=== PATIENT | female | born 1955 | race Caucasian/White ===

== ENCOUNTER 2017-06-30 09:36 | Inpatient (IN) | payer OTHER ==
[2017-06-30] MEDS ORDERED: diphenhydrAMINE 50 MG/ML VIAL ONE (09:45)
[2017-06-30] MEDS ORDERED: Albuterol Sulfate 2.5 mg/3 ml Neb ONE (10:09)
[2017-06-30] MEDS ORDERED: Rocuronium Bromide 50 MG/5 ML VIAL ONE (10:14)
[2017-06-30] MEDS ORDERED: EPINEPHrine 1 MG/ML AMP ONE (10:30)
--- NOTE | 2017-06-30 10:33 | RAD ---
SINGLE VIEW OF THE CHEST: COMPARISON: None. HISTORY: Difficulty breathing. FINDINGS: A single view of the chest shows a normal-size cardiomediastinal silhouette. There are multifocal in filtrates scattered throughout the lungs. No obvious pleural effusion is seen. IMPRESSION: Multifocal pneumonia. POS: [facility]
[2017-06-30 10:38] LABS: Troponin I 0.035 ng/mL (< 0.028)
[2017-06-30 10:41] LABS: CKMB 11.5 ng/mL (0-6.6)
[2017-06-30] MEDS ORDERED: Potassium Chloride 20 MEQ/100 ML PREMIX BAG ONE (10:44)
[2017-06-30 10:47] LABS: Actual Bicarbonate (HCO3a) 17.7 mEq/L (22-26); Base Excess (BEa) -9.2 mEq/L (0 (+/-) 2.5); CO2 Tension 42.3 mmHg (35.0-45.0); Hematocrit-ABG 37.4 % (36.0-47.0); Hemoglobin (Hb) 11.2 g/dL (12.0-16.0); O2 Tension (PaO2) 74.3 mmHg (80.0-100.0); pH, Arterial 7.24 (7.35-7.45)
[2017-06-30 10:48] LABS: Analyzer IN Cardio ER; Puncture Site LRA
[2017-06-30] MEDS ORDERED: Norepinephrine 8 MG/0.9% NS 250 ML ONE (10:53)
[2017-06-30 11:19] LABS: INR-International Normal Ratio 1.5; PTT 29.7 SEC (22.9-36.1); Prothrombin Time 18.8 SEC (12.0-14.7)
[2017-06-30] MEDS ORDERED: fentaNYL Citrate/PF 2,000 MCG in Sodium Chloride 0.9% 60 ML IV SCH (11:30)
[2017-06-30 11:37] LABS: ALT (SGPT) 21 U/L (8-55); AST (SGOT) 47 U/L (5-34); Albumin 2.7 g/dL (3.4-4.8); Alkaline Phosphatase 32 U/L (40-150); Anion Gap 25 mmol/L (10-20); BUN (Urea Nitrogen) 48 mg/dL (9.8-20.1); Bilirubin, Total 1.1 mg/dL (0.2-1.2); CK (CPK) 417 U/L (29-168); Calc. Creatinine Clearance 0 mL/min (70-130); Calcium 7.4 mg/dL (7.8-10.44); Carbon Dioxide 16 mmol/L (23-31); Chloride 92 mmol/L (98-107); Estimated GFR-MDRD 16; Glucose 205 mg/dL (80-115); Lipase 6 U/L (8-78); Protein, Total 5.7 g/dL (6.0-8.3); Sodium 131 mmol/L (136-145)
[2017-06-30 11:41] LABS: Potassium 2.2 mmol/L (3.5-5.1)
[2017-06-30 11:41] LABS: Bilirubin Small (Negative); Blood, Urine Negative (Negative); Clarity CLOUDY (Clear); Glucose, Urine (Dipstick) Negative (Negative); Leukocyte Trace (Negative); Nitrite Negative (Negative); Protein, Urine (Dipstick) 30 mg/dL (Neg-Trace); Specific Gravity, Urine 1.022 (1.002-1.036)
[2017-06-30 11:44] LABS: RBC/HPF 0-3 HPF (0-3); Squamous Epithelial 0-3 HPF (0-3); WBC/HPF 0-3 HPF (0-3)
[2017-06-30 11:45] LABS: Yeast-AUWi Flag 62.8 (0-25.0)
[2017-06-30 11:45] LABS: Band 20 % (5-11); Hemoglobin 10.9 g/dL (12.0-16.0); Large Platelets SLIGHT; Lymphocytes 39 % (21-51); MDiff Complete? YES; Mean Corpuscular HGB CONC 32.5 g/dL (32.0-36.0); Mean Corpuscular Hemoglobin 28.5 pg (27.0-31.0); Mean Corpuscular Volume 87.7 fl (81.0-99.0); Mean Platelet Volume 8.3 fL (7.4-10.4); Metamyelocyte 34 % (0-0); Myelocyte 2 % (0-0); Neutrophil 4 % (42-75); Platelet Count 151 thou/uL (130-400); RBC Distribution Width 12.5 % (11.5-14.5); Reactive Lymphocytes 1 % (0-10); Red Blood Cell (RBC) Count 3.81 mill/uL (4.20-5.40); Reflex for Review?? YES; Toxic Granulation SLIGHT; Vacuoles MODERATE; White Blood Cell (WBC) Count 3.2 thou/uL (4.8-10.8)
[2017-06-30 11:46] LABS: Pathc Cast-AUWi Flag 5.01 (0-2.49)
--- NOTE | 2017-06-30 11:50 | RAD ---
SINGLE VIEW OF THE CHEST: COMPARISON: 06/30/17 at 9:37 a.m. HISTORY: Respiratory distress with multifocal pneumonia. Rash on left arm. FINDINGS: A single view of the chest shows a normal-sized cardiomediastinal silhouette. There are stable multi focal infiltrates in the lungs. There has been interval placement of an NG tube with its tip at the upper border of the clavicles. An NG tube courses off the inferior aspect of the film, likely in the stomach. IMPRESSION: 1. Stable multifocal pneumonia. 2. Appropriate position of endotracheal tube and nasogastric tube. POS: [facility]
[2017-06-30 11:56] LABS: Bacteria/HPF 3+ HPF (None Seen); Hyaline Casts/LPF 0-3 HYALINE CAST LPF (0-3 Hyaline); Manual Microscopic Reviewed? No Path Casts Seen; Renal Epithelial None Seen HPF (0-3); Transitional Epithelial 0-3 HPF (0-3); Yeast-All Forms None Seen HPF (None Seen)
[2017-06-30 13:37] LABS: Anion Gap 24 mmol/L (10-20); BUN (Urea Nitrogen) 47 mg/dL (9.8-20.1); Calc. Creatinine Clearance 0 mL/min (70-130); Calcium 7.1 mg/dL (7.8-10.44); Carbon Dioxide 15 mmol/L (23-31); Chloride 95 mmol/L (98-107); Estimated GFR-MDRD 18; Glucose 244 mg/dL (80-115); Magnesium 1.8 mg/dL (1.6-2.6); Sodium 131 mmol/L (136-145)
[2017-06-30 13:39] LABS: Potassium 2.5 mmol/L (3.5-5.1)
[2017-06-30 13:42] LABS: Troponin I 0.039 ng/mL (< 0.028)
[2017-06-30] MEDS: Sodium Chloride 0.9% 1,000 ML IV SCH ×3 (14:35→19:54)
[2017-06-30] MEDS ORDERED: Propofol 1,000 MG/100 ML VIAL IV PRN (14:39)
[2017-06-30] MEDS ORDERED: Morphine 2 MG/ML SYRINGE SLOW IVP PRN (14:39)
[2017-06-30] MEDS ORDERED: Lorazepam 2 MG/ML VIAL SLOW IVP PRN (14:39)
[2017-06-30] MEDS ORDERED: DISCONTINUE PREVIOUS NARCOTIC PAIN MEDICATIONS AND BENZODIAZEPINES FS SCH (14:39)
[2017-06-30] MEDS ORDERED: Sodium Chloride 0.9% 1,000 ML IV SCH ×2 (15:00→23:15)
[2017-06-30] MEDS ORDERED: cefTRIAXone\\ROCEPHIN 1 GM in Sodium Chloride 0.9% 100 ML IVPB SCH (15:00)
[2017-06-30] MEDS ORDERED: Vancomycin HCl 1 GM in Premix Bag 1 BAG IVPB SCH (16:00)
[2017-06-30] MEDS ORDERED: Azithromycin 500 MG in Sodium Chloride 0.9% 250 ML 250 ML IVPB SCH (16:00)
[2017-06-30] MEDS ORDERED: Potassium Chloride 40 MEQ in Sodium Chloride 0.9% 250 ML 250 ML IVPB SCH (16:00)
[2017-06-30 16:17] LABS: Lactic Acid 8.3 mmol/L (0.5-2.2)
[2017-06-30 16:19] LABS: Troponin I 0.041 ng/mL (< 0.028)
--- NOTE | 2017-06-30 16:20 | ER ---
DATE OF SERVICE: 06/30/2017 Please refer the patient's electronic medical record for further details of her visit. In summary, the patient presents with shortness of breath, which began last night. She also reports chest pain and back pain, which began the night before. She states that she is a smoker, but does not carry a diagnosis of chronic lung disease such as COPD or emphysema. She states that she has not had had similar difficulty breathing in the past. On arrival, the patient was in moderately severe respiratory distress and was placed on BiPAP immediately upon arrival. She did not tolerate this and her respiratory status worsened. On recheck, with failure of BiPAP intervention, it was decided to intubate the patient. She was in agreement with this plan of action. Of note, she was hypotensive on arrival and we had some difficulty maintaining her blood pressure during her stay in the ER. She was given epinephrine intramuscularly as she had an apparent allergic reaction to medication that was given by EMS. This was done for concern for possible anaphylaxis exacerbating her condition. The patient was given IV fluids and pressure support with Levophed. This improved her blood pressure, but did require frequent titration. Evaluation reveals multilobar pneumonia, concerning for ARDS. She was covered with antibiotics and cultures are pending at the time of dictation. With these findings, I have much lower suspicion for the possibility of PE, which I initially suspected. Because of this, I will refrain from CT imaging given her poor renal function at this time. Note is made as well as bacteriuria. With a bandemia, leukopenia, hypotension, tachycardia, and multiorgan failure, this is consistent with severe sepsis. She is in critical condition at the time of admission, with a very guarded prognosis given the extent of her disease. There is no family at the bedside. HALIMA
[2017-06-30] MEDS: Heparin 5,000 UNITS/ML VIAL SC SCH ×2 (17:27→21:56)
[2017-06-30] MEDS: Albumin 25% 25 GM/100 ML BOT IVPB SCH ×2 (17:28→21:29)
[2017-06-30 18:16] VITALS: BMI 30.1
[2017-06-30] MEDS ORDERED: Furosemide 20 MG/2 ML VIAL SLOW IVP SCH ×2 (18:30→18:45)
[2017-06-30 18:59] LABS: Creatinine, Urine 93.35 mg/dL (47-110)
[2017-06-30 19:18] LABS: Anion Gap 19 mmol/L (10-20); BUN (Urea Nitrogen) 45 mg/dL (9.8-20.1); Calc. Creatinine Clearance 28 mL/min (70-130); Calcium 6.5 mg/dL (7.8-10.44); Carbon Dioxide 16 mmol/L (23-31); Chloride 100 mmol/L (98-107); Estimated GFR-MDRD 21; Glucose 222 mg/dL (80-115); Sodium 132 mmol/L (136-145)
[2017-06-30] MEDS ORDERED: Acetaminophen 325 MG TAB PO PRN (19:19)
[2017-06-30] MEDS: Acetaminophen 325 MG TAB PO PRN (19:48)
[2017-06-30 20:19] LABS: Legionella Urinary Ag Negative (Negative); Strep pneumo Urine Ag NEGATIVE (NEGATIVE)
[2017-06-30] MEDS ORDERED: Famotidine/PF 20 mg/2ml Vial SLOW IVP SCH ×2 (21:00)
[2017-06-30] MEDS: Vasopressin 40 UNIT, Admixture Fee 1 EACH in Sodium Chloride 0.9% 100 ML IV SCH (21:02)
--- NOTE | 2017-06-30 21:10 | ULT ---
RENAL ULTRASOUND: 06/30/17 HISTORY: Acute kidney insufficiency with sepsis. Right kidney measures 9.3 cm in length. Left kidney measures 10.8 cm in length. No evidence of hydron ephrosis. The left kidney does show echogenic foci consistent with calculi. The bladder is contracted with Shaikh catheter in place and not evaluated. IMPRESSION: No hydronephrosis. Tiny echogenic foci in the left kidney may represent small renal calculi. POS: [facility]
[2017-06-30] MEDS ORDERED: Sodium Bicarb 50 MEQ/50 ML Abboject 8.4% SYRINGE ONE ×2 (21:15→21:19)
[2017-06-30 21:20] LABS: Actual Bicarbonate (HCO3a) 16.4 mEq/L (22-26); Base Excess (BEa) -11.3 mEq/L (0 (+/-) 2.5); CO2 Tension 44.4 mmHg (35.0-45.0); Calcium, Ionized 0.9 mmol/L (1.12-1.30); Hematocrit-ABG 36.9 % (36.0-47.0); Hemoglobin (Hb) 11.4 g/dL (12.0-16.0); Puncture Site RBRACH; pH, Arterial 7.19 (7.35-7.45)
[2017-06-30] MEDS ORDERED: D5 1/4 NS 1,000 ML IV SCH (21:30)
[2017-06-30] MEDS ORDERED: Sodium Bicarb 50 MEQ/50 ML Abboject 8.4% SYRINGE IVP SCH (21:30)
--- NOTE | 2017-06-30 21:35 | CON ---
DATE OF CONSULTATION: 06/30/2017 Ms. Montague is a [employer] inmate here. She works in the kitchen. She became acutely ill today r eportedly. [facility] and had been given steroids. She developed a "rash" supposedly and was sent here. She was short of breath on presentation and sub sequently has been intubated. She was admitted with a diagnosis of drug reaction. History was obtained from the nursing staff since she is intubated and sedated. PAST MEDICAL HISTORY: Limited amount. She reportedly has hepatitis C, diabetes and hypertension. It is unknown whether she currently smokes or drinks. It is unlikely that she is drinking in the meenakshi son. She is on hydrochlorothiazide, lisinopril, metformin prior to admission. OBJECTIVE: VITAL SIGNS: Blood pressure in the ER initially was 85/51 with a heart rate of 112, blood pressure i n the ICU was 119/62. She is on Levophed, heart rate 127, respiratory rate is in the 20s. Oximetry was in the low 90s. She is on 80% oxygen on 5 of PEEP, when she was admitted. Her PEEP has been inc reased to 10. Her FIO2 has been reduced to 50%. She is febrile. HEENT: Her pupils react. Sclerae is anicteric. NECK: Supple. LUNGS: She has coarse equal breath sounds bilaterally with slightly prolonged expiratory phase. HEART: Regular rhythm, no S3. ABDOMEN: Soft and nontender. EXTREMITIES: Without asymmetry. LABORATORY AND X-RAY FINDINGS: Chest radiograph reviewed by me shows bilateral patchy alveolar infil trates. White count 3.2, hemoglobin 10.9. She has 20% bands on a peripheral smear. She was 34% metamyelocyt es. Sodium 131, potassium 2.5, chloride 95, bicarb 15, BUN 47, creatinine 2.7, glucose 244. I do not hav e any old lab on her. IMPRESSION: 1. Pneumonia with respiratory failure and hypoxemia. 2. Obesity. 3. Relative neutropenia with a preponderance of metamyelocytes on her peripheral smear, but I suspec t this is an acute phase reactant associated with her critical illness and her pneumonia. This fails to improve. Oncology will need to be consulted. I suspect we will see a gradual decrease in bands and metamyelocytes and increase in neutrophils over the next few days. 4. Hypoxemia secondary to severe pneumonia. 5. ? underlying obstructive lung disease. 6. Diabetes. 7. Hypertension. 8. Hypokalemia. Electrolytes will be replaced. PLAN: Steroids, broad antimicrobial therapy, nebulizer treatments, mechanical ventilation, sedation. We will probably start nutritional support tomorrow. Critical care time 40 minutes.
--- NOTE | 2017-06-30 21:40 | HP ---
CHIEF COMPLAINT: Respiratory distress. HISTORY OF PRESENT ILLNESS: This is a 62-year-old female who is currently a jailed inmate who was in itially admitted to the emergency room with a chief complaint of respiratory distress. Due to the se verity of her respiratory distress, she was emergently intubated in the Emergency Department. She wa s found to have a multilobar pneumonia and to be in septic shock as well and has been started on empi rodney antibiotics including Levaquin and ceftriaxone, Levophed for pressor support, and is currently st atus post 2 liters IV fluid, normal saline. At the time of my evaluation, the patient is currently status post intubation. She is sedated on pro pofol. She is unable to provide any history. She has a [facility] personnel with her at bedside who is un fortunately unable to provide any of the patient's history as well. From the ER reports, it appears that the patient also had an allergic reaction causing diffuse maculo papular eruption throughout her torso, arms and legs when she was given a combination of 3 DuoNebs, 2 grams of magnesium, and Solu-Medrol by the EMS. PAST MEDICAL HISTORY: Hepatitis C, type 2 diabetes, hypertension, anxiety, depression. PAST SURGICAL HISTORY: No known history of surgeries. No surgical scarring of the skin along the ab domen, shoulders, ankles, knees, hips or elbows noted on physical examination. FAMILY HISTORY: Unable to obtain secondary to above. SOCIAL HISTORY: Unable to obtain secondary to above. REVIEW OF SYSTEMS: Unable to be obtained due to communication issues as above. PHYSICAL EXAMINATION: VITAL SIGNS: At the time of my evaluation, blood pressure 90/57, pulse 109, respirations 16, O2 sat 95% on the ventilator. GENERAL: Patient is intubated, sedated, lying in the hospital stretcher. HEENT: ET tube appears grossly to be in appropriate position. CARDIOVASCULAR: S1, S2. Pulses 2+ bilateral upper extremity, no pitting pedal edema. RESPIRATORY: Limited anterior examination, prominent ventilator sounds throughout, reasonable air mo vement bilaterally. ABDOMEN: Positive bowel sounds, soft. LABORATORY DATA AND IMAGIN. WBC 3.2, hemoglobin 10.9, hematocrit 33.4, platelets 151, neutrophils percentage 4. 2. PT 18.8, INR 1.5. 3. Blood gas ABG 7.24, pCO2 of 42.3, pO2 of 74.3. Sodium 131, potassium 2.2, chloride 32, bicarbona te 16, BUN 48, creatinine 2.92, glucose 205, lactate 11.0, calcium 7.4. AST 47, ALT 21, alkaline nahum sphatase 32, creatine kinase 417. Troponin 0.035. BNP 434.8, lipase 6. 4. UA significant for urine protein of 30, urine ketones trace, urine bilirubin small, trace leukocy te esterase, and 3+ urine bacteria. 5. Chest x-ray; impression, "multifocal pneumonia" per my evaluation and visualization appears to be distributed throughout the left lobes and the right middle and lower lobes. ASSESSMENT AND PLAN: A 62-year-old female presenting with septic shock and respiratory distress. 1. Septic shock. The patient is currently on Levophed. Continue with IV resuscitation. The patien t has received 2 liters worth of IV fluid bolus in the ER. We will continue for another 2 liters for a total of 4 liters positive and reassess the patient's fluid status at that point in time. Empiric antibiotics will include vancomycin, ceftriaxone, azithromycin. Pressor support with Levophed, titr ate as tolerated. Likely etiology of the patient's septic shock is her multifocal pneumonia. Pendin g respiratory culture, urine culture, blood cultures as well. 2. Multifocal pneumonia noted on chest x-ray. We will also evaluate the patient for influenza. Sarah ce the patient empirically on droplet precautions until negative. We will also check urine strep and urine legionella. At this point in time, no steroids, no nebulizers secondary to her allergic react ion, which is currently self-resolving. I appreciate pulmonary consultation. Patient is currently m echanically ventilated. 3. Acute kidney injury without known history of renal disease. I appreciate Nephrology consultation in the setting of septic shock and acidosis. Patient will need close monitoring of her intake outpu t. Hydration as per above. Check urine electrolytes, renal ultrasound. Pending urine culture as ab ove. If the patient has the urinary tract infection, she certainly is well covered by the empiric an tibiotics above as well. 4. Hypokalemia. Cautious repletion in the setting of acute kidney injury. We will also check serum magnesium and co-replete if needed. Maintain the patient on telemetry. 5. Leukopenia, likely related to septic shock. See above along with empiric antibiotics above. Shannan ck CBC in a.m. 6. Anemia, unclear chronicity. Hemoccult check stool and gastric contents, if any. Serial monitori ng. Recheck in a.m. 7. History of hepatitis C, unknown stage, unknown baseline status. The patient does have an elevate d INR of 1.5, closely monitor for any progressive hepatic disease. 8. Elevated troponin of 0.035 without EKG changes consistent with acute coronary syndrome. Suspect that this more likely represents demand ischemia or a type 2 NSTEMI due to septic shock and the other comorbid issues as described above. We will closely monitor. Low threshold for Cardiology consulta tion if needed. 8. The patient is admitted to the CCU. She is presumed to be full code at this point in time as she is not able to have a code conversation and does not have any designated family members currently av ailable. Greater than 45 minutes critical care time spent.
--- NOTE | 2017-06-30 21:43 | CON ---
DATE OF CONSULTATION: 06/30/2017 NEPHROLOGY CONSULTATION REASON FOR CONSULTATION: Metabolic acidosis and acute renal failure. HISTORY OF PRESENT ILLNESS: This is a 62-year-old female who presented to the hospital with shortness of breath. The patient was found to be hypotensive and in respiratory failure. The patient was intubated. The patient can give no further history and no abdominal pain was reported. PAST MEDICAL HISTORY: Significant for hepatitis C, diabetes, hypertension. PAST SURGICAL HISTORY: Unknown. SOCIAL/FAMILY HISTORY: Unknown except the patient is [facility]. ALLERGIES: Reviewed. HOME MEDICATIONS: List reviewed. Metformin noted on ER records. HOSPITAL MEDICATIONS: List reviewed. PHYSICAL EXAMINATION: GENERAL: Patient is resting. VITAL SIGNS: Afebrile, pulse 70, breathing at 16, blood pressure 100/50. GENERAL APPEARANCE AND MENTAL STATUS: Fair. HEAD/NECK: Normocephalic. Atraumatic. EYES: EOMI. No deformity. EARS: Clear. No ulcers. NOSE: Intact. No lesions. MOUTH: Clear. No discharge. THROAT: Clear. No exudate. LUNGS: Clear. No crackles. CARDIAC: S1, S2. No rub. ABDOMEN: Benign. BS+. GENITALIA/RECTUM: Shaikh absent. BACK/EXTREMITIES: Edema 0+ Ulcer-. NEUROLOGICAL: The patient is resting. SKIN: Shows livedo reticularis. LYMPHATICS: Edema- Ulcer-. LABORATORY DATA: Show hemoglobin is 10.9, lactic acid is 8.3, potassium is 2.5 , creatinine is 2.7. ASSESSMENT AND RECOMMENDATIONS: 1. Acute kidney injury with chronic kidney disease, most likely multifactorial as well as lactic acidosis due to septic shock and or metformin induced lactic acidosis. Risks versus benefits of renal replacement therapy will be discussed and dialysis will be initiated if patient is deemed stable.. 2. Anemia, stable. 3. Medications based on GFR are appropriate. 4. Hypokalemia. Recommend high dose potassium replacement. Overall, prognosis is extremely poor. MTDD
[2017-06-30] MEDS ORDERED: EPINEPHrine 4 MG in Dextrose 5% in Water 250 ML IVPB SCH ×2 (21:45)
[2017-06-30] MEDS: cefTRIAXone\\ROCEPHIN 1 GM, Syringe 0.4 ML in Sterile Water 9.6 ML SLOW IVP SCH (21:54)
[2017-06-30] MEDS: Sodium Bicarbonate 150 MEQ in D5 1/4 NS 1,000 ML IV SCH (22:21)
--- NOTE | 2017-06-30 22:53 | PRG ---
DATE OF SERVICE: 06/30/2017 SUBJECTIVE: Ms. Day Montague has continued to spiral downhill. Her hemodynamics has become more and more unstable. She is on extremely high dose Levophed, vasopres sin and epinephrine is being started. There has been no change in her exam overall, although her lung compliance has fallen some. We have increased her respiratory rate and placed on bilevel ventilation. Her last blood gas showed a pH of 7.19, CO2 of 44 and pO2 of 72. Consideration was being given towards dialysis in the event that some of this acidemia was secondary to metformin. I feel dialysis would end her life. I informed the officers sitting with her [place] that it is very likely that she will not survive the night. We have no other therapeuti c options other than the antimicrobial therapy, steroids, 3 pressors and hyperventilation. If there were family here, I would be having a discussion about do not resuscitate status, but there is no fam nicci here. They also will notify the warden of her possible impending demise. CRITICAL CARE TIME: In additional 45 minutes.
--- NOTE | 2017-06-30 22:55 | HP ---
HISTORY OF PRESENT ILLNESS: A 62-year-old female prisoner admitted today, intubated. She is complai fabio of respiratory failure. She is complaining of dyspnea. She has been seen by Dr. Yeager and admit paola. From a nephrology standpoint, she started to have a metformin-induced acidosis. Her white coun t is 3, hemoglobin 10.9. BUN 45, creatinine 2.32, CO2 of 18, sodium 132. I have been asked to see h er for placement of an emergent dialysis catheter. She has a right femoral vein triple lumen cathete r and a left antecubital IV. I have removed her antecubital IV at the bedside as soon as it was appr eciated. Allergies recorded as METHYLPREDNISOLONE. Past history is taken from the chart as she is n ot able to give a history. The patient was admitted with productive cough and back pain. Pulmonary Medicine has seen her and believes her to have pneumonia. She has had a flu vaccine. She has histor y of diabetes mellitus type 2, hypertension. PAST SURGICAL HISTORY: Unknown. Past history of depression noted. MEDICATIONS: Hydrochlorothiazide, lisinopril, metformin. REVIEW OF SYSTEMS: Not possible. PHYSICAL EXAMINATION: VITAL SIGNS: 159 pounds, 30 BMI, 128 heart rate, 22 respiratory rate, 105/53 blood pressure. GENERAL: Patient is intubated. Generally, she is mottled in her lower extremities. She has a right femoral vein triple lumen catheter and a left arm antecubital IV which was immediately removed. Eye s are open. LUNGS: Clear to auscultation, diminished breath sounds at base. No wheezing. CARDIAC: Sinus tachycardia. ABDOMEN: Soft, obese. EXTREMITIES: Mottled. LABORATORY DATA: Sodium 132, potassium 3.0, BUN 45, creatinine 2.32. Lactic acid 8.3, white count 3 , hemoglobin 10.9, 20% bands. Chest x-ray: Multifocal pneumonia. ASSESSMENT AND PLAN: 1. Pneumonia. 2. Respiratory failure. 3. Diabetes mellitus. 4. Hypertension. 5. Diabetes mellitus type 2. 6. Hypertension. 7. Pneumonia. 8. Obesity. 9. Respiratory failure on ventilator. 10. Metformin-induced acidosis and in need of emergent dialysis access. We will plan placement of h emodialysis catheter femoral vein. We would recommend avoiding IV access above the wrist. We will o btain vein mapping both arms in case that is needed in the future. Power of regulatory attorney is not availabl e for consent for hemodialysis catheter, but I was called on an urgent basis to initiate dialysis due to severe acidosis and I consider this an emergent procedure. This will be performed at the bedside .
--- NOTE | 2017-06-30 23:54 | OP ---
PREOPERATIVE DIAGNOSES: Respiratory failure, metformin-induced acidosis, sepsis, mottling, diabetes mellitus, and obesity. POSTOPERATIVE DIAGNOSES: Respiratory failure, metformin-induced acidosis, sepsis, mottling, diabetes mellitus, and obesity. PROCEDURE: Left femoral vein Trialysis catheter. SURGEON: Ruddy Hurley M.D. ANESTHESIA: A 1% Xylocaine. PROCEDURE IN DETAIL: At the patient's bedside, left groin was clipped of hair, prepared with ChloraP rep, draped in routine fashion. Sterile technique used to place the left femoral vein Trialysis cath eter, cannulated the vein with the trocar catheter, placed J-wire, removing the trocar catheter, dila ting the area with two dilators and removing them, placed the distal port of triple lumen catheter ov er the J-wire into the femoral vein, removing the J-wire, securing the catheter with 3-0 nylon suture . Biopatch sterile dressing applied. Each port aspirated blood and heparin flush was used. The pat ient tolerated the procedure well.
[2017-07-01] MEDS: Sodium Bicarbonate 150 MEQ in D5 1/4 NS 1,000 ML IV SCH ×2 (03:30→09:49)
[2017-07-01] MEDS: Albumin 25% 25 GM/100 ML BOT IVPB SCH ×2 (03:30→09:01)
[2017-07-01] MEDS: Acetaminophen 325 MG TAB PO PRN (03:38)
[2017-07-01 05:06] LABS: ALT (SGPT) 23 U/L (8-55); AST (SGOT) 60 U/L (5-34); Albumin 3.2 g/dL (3.4-4.8); Alkaline Phosphatase 22 U/L (40-150); Anion Gap 22 mmol/L (10-20); BUN (Urea Nitrogen) 51 mg/dL (9.8-20.1); BUN/Creatinine Ratio 16.67; Bilirubin, Total 1.2 mg/dL (0.2-1.2); Calc. Creatinine Clearance 21 mL/min (70-130); Calcium 6.3 mg/dL (7.8-10.44); Carbon Dioxide 23 mmol/L (23-31); Chloride 96 mmol/L (98-107); Estimated GFR-MDRD 15; Globulin 2.1 g/dL (2.4-3.5); Glucose 293 mg/dL (80-115); Phosphorus 4.5 mg/dL (2.3-4.7); Potassium 3.3 mmol/L (3.5-5.1); Protein, Total 5.3 g/dL (6.0-8.3); Sodium 138 mmol/L (136-145)
[2017-07-01 05:20] LABS: Band 33 % (5-11); Dohle Bodies SLIGHT; Hemoglobin 10.3 g/dL (12.0-16.0); Lymphocytes 25 % (21-51); MDiff Complete? YES; Mean Corpuscular HGB CONC 32.2 g/dL (32.0-36.0); Mean Corpuscular Hemoglobin 28.3 pg (27.0-31.0); Metamyelocyte 29 % (0-0); Monocytes 2 % (0-10); Myelocyte 9 % (0-0); Neutrophil 2 % (42-75); Nucleated RBC 1 % (0); PLT Morphology Comment Appears Decreased; Platelet Count 116 thou/uL (130-400); RBC Distribution Width 12.8 % (11.5-14.5); Red Blood Cell (RBC) Count 3.64 mill/uL (4.20-5.40); Vacuoles SLIGHT; White Blood Cell (WBC) Count 3.4 thou/uL (4.8-10.8)
[2017-07-01] MEDS: Sodium Chloride 0.9% 1,000 ML IV SCH (06:53)
[2017-07-01 06:54] LABS: Actual Bicarbonate (HCO3a) 22.1 mEq/L (22-26); Base Excess (BEa) -3.6 mEq/L (0 (+/-) 2.5); CO2 Tension 42.8 mmHg (35.0-45.0); Hematocrit-ABG 31.3 % (36.0-47.0); Hemoglobin (Hb) 9.7 g/dL (12.0-16.0); O2 Tension (PaO2) 62.7 mmHg (80.0-100.0); pH, Arterial 7.33 (7.35-7.45)
[2017-07-01 06:55] LABS: Calcium, Ionized 0.8 mmol/L (1.12-1.30); Puncture Site RRA
--- NOTE | 2017-07-01 08:34 | RAD ---
SINGLE VIEW OF THE CHEST: COMPARISON: 06/30/17. HISTORY: Ventilated patient with respiratory failure. FINDINGS: The chest shows normal size cardiomediastinal silhouette. The endotracheal tube and NG tube are unch anged in position. There are worsening airspace opacities scattered throughout the lungs. This may be secondary to multifocal pneumonia or ARDS. IMPRESSION: Worsening multifocal infiltrates. POS: [facility]
[2017-07-01] MEDS: Heparin 5,000 UNITS/ML VIAL SC SCH (08:41)
[2017-07-01] MEDS ORDERED: FLU VACC QS2017-18 36 mo. & older 0.5 ML SYRINGE IM ONE (09:00)
[2017-07-01] MEDS: cefTRIAXone\\ROCEPHIN 1 GM, Syringe 0.4 ML in Sterile Water 9.6 ML SLOW IVP SCH (09:49)
[2017-07-01 10:49] VITALS: BP 87/44
[2017-07-01] MEDS ORDERED: cefTRIAXone\\ROCEPHIN 1 GM, Syringe 0.4 ML in Sterile Water 9.6 ML SLOW IVP SCH (11:00)
--- NOTE | 2017-07-01 11:22 | PDOC.PN ---
- Subjective Encounter Start Date: 07/01/17 Encounter Start Time: 11:22 -: non-verbal Subjective: nsg notes rev, hypotensive ovn, curr with tachycardia, difficulty -: oxgenating despite ventilator support. 2 guards at bedside. -: pt is intub, sed, non verbal - Objective Vital Signs & Weight: Vital Signs (12 hours) Temp Pulse Resp BP Pulse Ox 07/01/17 10:47 735 H 87/44 L 07/01/17 09:42 131 H 92/51 L 07/01/17 08:00 30 H 07/01/17 07:20 101.2 F H 07/01/17 07:19 135 H 103/58 L 07/01/17 06:00 99.3 F 30 H 07/01/17 04:00 32 H 07/01/17 02:49 136 H 30 H 93 L 07/01/17 02:00 30 H 07/01/17 00:00 30 H 97 Weight Admit Weight 159 lb 6.307 oz Weight 159 lb 6.307 oz Most Recent Monitor Data Heart Rate from ECG 135 NIBP 91/38 NIBP BP-Mean 64 Respiration from ECG 30 SpO2 90 I&O: 06/30/17 07/01/17 07/02/17 06:59 06:59 06:59 Intake Total 4845.4 Output Total 303 5 Balance 4542.4 -5 Result Diagrams: 07/01/17 04:40 07/01/17 04:40 Additional Labs: Accuchecks 06/30/17 18:34 POC Glucose 193 H Phys Exam - Physical Examination Constitutional: NAD intubated, sedated, does open eyes to stimuli HEENT: PERRLA ETT in place, OGT in place coarse and prominent ventilator sounds b/l throughout Cardiovascular: RRR, no significant murmur, no rub Gastrointestinal: soft, positive bowel sounds Shaikh catheter in place, scant yellow urine in bag Musculoskeletal: no edema, pulses present Skin: normal turgor, cap refill <2 seconds -: reticular rash noted throughout b/l LE Dx/Plan (1) Septic shock Code(s): A41.9 - SEPSIS, UNSPECIFIED ORGANISM; R65.21 - SEVERE SEPSIS WITH SEPTIC SHOCK Status: Acute Comment: Suspect visualized pneumonia as primary infectious source Empiric abx as below pending UCx, BCx results IVF, pressor support as below Concern for evolving multi-organ dysfunction secondary to sepsis 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 (2) Multifocal pneumonia Code(s): J18.9 - PNEUMONIA, UNSPECIFIED ORGANISM Status: Acute Comment: See discussion above Appreciate pulmonary consultation as patient also has hypoxic respiratory failure and is currently ventilator dependent (3) Acute kidney injury Code(s): N17.9 - ACUTE KIDNEY FAILURE, UNSPECIFIED Status: Acute Comment: In the setting of septic shock and metabolic acidosis Appreciate nephrology consultation (4) Hypokalemia Code(s): E87.6 - HYPOKALEMIA Status: Acute Comment: Repletion and monitoring likely 2/2 issues above Maintain on monitoring (5) Acidosis Code(s): E87.2 - ACIDOSIS Status: Acute (6) Respiratory failure Code(s): J96.90 - RESPIRATORY FAILURE, UNSP, UNSP W HYPOXIA OR HYPERCAPNIA Status: Acute - Plan Overall poor prognosis. This was discussed with the shelter guards at bedside and around noontime, was able to call and discuss with patient's mother and 2 sisters. Relayed that the patient was very ill with septic shock including multiple organ failures in the intensive care unit. They verbalized planning to travel to visit her and asked that we do "everything possible" in the meantime. Diet: NPO, t/c TF if possible activity: bedbound dvt ppx Review of Systems - Medications/Allergies Allergies/Adverse Reactions: Allergies Allergy/AdvReac Type Severity Reaction Status Date / Time methylprednisolone Allergy Verified 06/30/17 21:21 [From Solu-Medrol] Medications: Current Medications Acetaminophen (Tylenol) 650 mg PO Q6H PRN PRN Reason: Headache/Fever or Pain Last Admin: 07/01/17 03:38 Dose: 650 mg Albumin Human (Albumin 25%) 25 gm IVPB Q6H DAVE Stop: 07/02/17 15:31 Last Admin: 07/01/17 09:01 Dose: 25 gm Albuterol/Ipratropium (Duoneb) 3 ml NEB [id number] DAVE Last Admin: 07/01/17 10:47 Dose: 3 ml Famotidine (Pepcid) 20 mg SLOW IVP QPM DAVE Last Admin: 06/30/17 21:56 Dose: 20 mg Heparin Sodium (Porcine) (Heparin) 5,000 units SC TID [facility] Last Admin: 07/01/17 08:41 Dose: 5,000 units Fentanyl Citrate 2,000 mcg/ (Sodium Chloride) 100 mls @ 0 mls/hr IV INF DAVE PRN Reason: As Directed Fentanyl Citrate (Fentanyl Bolus) 250 mls @ 0 mls/hr IVPB PRN PRN; As Directed PRN Reason: Breakthrough pain Stop: 07/30/17 14:43 Azithromycin 500 mg/ Sodium (Chloride) 250 mls @ 250 mls/hr IVPB Q24HR [facility] Stop: 07/04/17 16:59 Last Admin: 06/30/17 17:28 Dose: 250 mls Vancomycin HCl 750 mg/ Sodium (Chloride) 250 mls @ 250 mls/hr IVPB Q2D@1700 DAVE Norepinephrine Bitartrate 16 (mg/ Dextrose/Water) 266 mls @ 0 mls/hr IVPB INF DAVE; Titrate PRN Reason: Protocol Last Admin: 07/01/17 03:30 Dose: 266 mls Sodium Chloride (Normal Saline 0.9%) 1,000 mls @ 100 mls/hr IV .Q10H [facility] Last Admin: 07/01/17 06:53 Dose: Not Given Vasopressin 40 unit/Miscellaneous Medication 1 each/ Sodium Chloride 102 mls @ 0 mls/hr IV INF DAVE; As Directed PRN Reason: Protocol Last Admin: 06/30/17 21:02 Dose: 102 mls Epinephrine 4 mg/ Dextrose/ (Water) 254 mls @ 0 mls/hr IVPB INF DAVE; Titrate PRN Reason: Protocol Last Admin: 06/30/17 21:55 Dose: 254 mls Ceftriaxone Sodium 1 gm/ (Syringe 0.4 ml/ Sterile Water) 10 mls @ 120 mls/hr SLOW IVP 1000,2200 [facility] Last Admin: 07/01/17 09:49 Dose: 10 mls Sodium Bicarbonate 150 meq/ (Dextrose/Sodium Chloride) 1,150 mls @ 200 mls/hr IV .Q5H45M [facility] Last Admin: 07/01/17 09:49 Dose: 1,150 mls Lorazepam (Ativan) 2 mg SLOW IVP Q2H PRN PRN Reason: Anxiety to achieve Webber 2-3 Stop: 07/30/17 14:39 Methylprednisolone Sodium Succinate (Solu-Medrol) 20 mg IVP Q6HR [facility] Last Admin: 07/01/17 05:23 Dose: 20 mg Miscellaneous Medication (Pharmacy To Dose) 1 each IVPB PRN PRN PRN Reason: Pharmacy to dose Morphine Sulfate (Morphine) 2 mg SLOW IVP Q2H PRN PRN Reason: Breakthrough pain Stop: 07/30/17 14:39 Discontinue Previous Narcotic Pain Medications And Benzodiazepines 1 each FS .ONE [facility] Stop: 07/30/17 14:39 Propofol (Diprivan) 1,000 mg IV INF PRN; Protocol PRN Reason: TO ACHIEVE WEBBER SCORE 2-3 Stop: 07/30/17 14:39
--- NOTE | 2017-07-01 11:51 | PRG ---
DATE OF SERVICE: 07/01/2017 SUBJECTIVE: This is a 62-year-old female being seen for acute kidney injury. The patient remains ol iguric. PHYSICAL EXAMINATION: VITAL SIGNS: The patient is afebrile, pulse 131, blood pressure 92/51, O2 sat is 90%. HEAD/NECK: Normocephalic. Atraumatic. EYES: EOMI. No deformity. EARS: Clear. No ulcers. NOSE: Intact. No lesions. MOUTH: Clear. No discharge. THROAT: Clear. No exudate. LUNGS: Clear. No crackles. CARDIAC: S1, S2. No rub. ABDOMEN: Benign. BS+. GENITALIA/RECTUM: Sahikh absent. BACK/EXTREMITIES: Edema 0+ Ulcer- NEUROLOGICAL: Alert and motor intact. SKIN: Shows livedo reticularis. LYMPHATICS: Edema- Ulcer- LABORATORY DATA: Show bicarbonate 23, potassium 3.3, creatinine 3.0. ASSESSMENT AND PLAN: 1. Acute kidney injury. The patient is anuric and remains hemodynamically unstable, unable to do di alysis. 2. Hypokalemia, improved. 3. Metabolic acidosis, improved. 4. Overall prognosis is extremely poor.
[2017-07-01] MEDS ORDERED: Acetaminophen 1,000 MG in Premix Bag 1 BAG IVPB PRN (12:15)
[2017-07-01] MEDS: Vasopressin 40 UNIT, Admixture Fee 1 EACH in Sodium Chloride 0.9% 100 ML IV SCH (13:10)
--- NOTE | 2017-07-01 14:06 | PRG ---
DATE OF SERVICE: 07/01/2017 SUBJECTIVE: Ms. Montague is on high dose epinephrine, Levophed and vasopressin. She has made it throug h the night. Her intake and output is positive 4542. She has had only 303 mL of urine out. OBJECTIVE: LUNGS: Remarkable for coarse equal breath sounds. HEART: Regular rhythm. ABDOMEN: Soft. LABORATORY DATA: White count 3.4, hemoglobin 10.3, platelets 116. She still has 29% metamyelocytes on her peripheral smear. A pH 7.33, CO2 42, pO2 62, this is on bilevel. Her low PEEP has been incre ased throughout the morning with no improvement in her gas exchange and her sats are now in the 60s. Chest radiograph shows dense diffuse alveolar infiltrates. IMPRESSION: 1. Respiratory failure. 2. Pneumonia with adult respiratory distress syndrome. 3. Clinical sepsis. Cultures surprisingly are negative so far. I suppose this could be a systemic inflammatory response syndrome associated with a viral illness or influenza. It could also be legion jose or mycoplasma, although usually pass away with mycoplasma sepsis. Legionella will be easily lauren wn out on blood cultures. In any event, she will not survive this. I contacted her mother by phone and talked to multiple [facility] members on the phone. I have explained to her that we are dripping all the available code drugs i n, i.e., bicarbonate and epinephrine with no improvement. The big problem at this point in time was not as much hemodynamics as it is gas exchange. There is nothing else we can do mechanical ventilati on. I do not think prone ventilation will increase her chances of her survival. I doubt this is a vasculitis or alveolar hemorrhage. In any event, she is already on steroids. Pulm onary discussed with the family. They agree with do not resuscitate status. There over 12 hours america y. I have explained to them that she will not be aware of their presence if they arrive in the ICU. They were preparing to try to hurry and drive here. I think that would be an unnecessary risk. I d o not expect her to make it through the rest of the day. She is not a candidate for dialysis or any volume removal at this point in time. Critical care time 45 minutes. This information has been relayed to the warden as well. Do not resu scitate status will be entered.
[2017-07-01 15:06] VITALS: TEMP 103.2
--- NOTE | 2017-07-02 08:24 | DS ---
DATE OF : 07/01/2017 at 1411. DISCHARGE DIAGNOSES: 1. Multifocal pneumonia. 2. At this point, suspected gram positive organism for pneumonia etiology. 3. Acute respiratory failure, ventilator dependent. 4. Adult respiratory distress syndrome. 5. Septic shock. 6. Acute renal injury. 7. Acidosis. BRIEF SUMMARY OF HOSPITAL COURSE: Ms. Montague is a 62-year-old female who was brought in initially for shortness of breath. Please see the original history and physical for full details surrounding admission. In the emergency department , she had significant amount of work of breathing, failed BiPAP support in the emergency department and was subsequently intubated for acute respiratory failure. On admission, the patient was demonstrating not only acute respiratory failure, but also septic shock with acute kidney injury, acidosis. Sepsis protocol was initiated; patient was empirically placed on triple antibiotics including methicillin-resistant Staphylococcus aureus, IV fluid resuscitation, and pressor support. Both Pulmonary and Nephrology consultations were sought for this patient. Over the subsequent hospitalization, the patient failed to significantly improve despite maximal medical therapy. She was receiving pressor support in the form of both Levophed and vasopressin. She has been fluid resuscitated with 4-5 liters IV fluid and unfortunately has had very little urinary output. Nephrology had been consulted, but she was too hemodynamically unstable for hemodialysis. The patient demonstrated leukopenia as a component of her septic shock. Blood cultures are no growth to date at the time of this dictation. Urine cultures are also no growth to date at the time of this dictation; however , respiratory cultures are demonstrating gram positive cocci without speciation or sensitivity at this point in time. Unfortunately, the patient's respiratory failure progressed to adult respiratory distress syndrome with difficulty with gas exchange. Conversation was held with the patient's mother and sisters by multiple physicians regarding her poor prognosis and failure of aggressive medical therapy. Family (mother) decided to change the patient's code status to do not resuscitate. Patient afterwards. Please see the progress notes for further details regarding the patient's clinical course. Thank you for asking me to care for your patient. Any questions or concerns please feel free to contact me at [facility]. HALIMA
[2017-07-02] MEDS ORDERED: Vancomycin HCl 750 MG in Sodium Chloride 0.9% 250 ML 250 ML IVPB SCH (17:00)
== END 2017-07-01 14:11 | disposition expired | DRG 871 ==
LOC: ERS 09:36 → CCU 14:41
PROVIDERS: ADMIT Internal Medicine; ATTEND Internal Medicine
PROC: 5A1935Z Respiratory Ventilation, Less than 24 Consecutive Hours (ICD-10-PCS; principal; 2017-06-30)
PROC: 0BH17EZ Insertion of Endotracheal Airway into Trachea, Via Natural or Artificial Opening (ICD-10-PCS; 2017-06-30)
PROC: 06HY33Z Insertion of Infusion Device into Lower Vein, Percutaneous Approach (ICD-10-PCS; 2017-06-30)
PROC: 06HY33Z Insertion of Infusion Device into Lower Vein, Percutaneous Approach (ICD-10-PCS; 2017-06-30)
DX: A41.9 Sepsis, unspecified organism (principal); J18.9 Pneumonia, unspecified organism; J96.00 Acute respiratory failure, unspecified whether with hypoxia or hypercapnia; R65.21 Severe sepsis with septic shock; N17.9 Acute kidney failure, unspecified; E87.2 Acidosis; E11.9 Type 2 diabetes mellitus without complications; D64.9 Anemia, unspecified; Z66 Do not resuscitate; Z79.84 Long term (current) use of oral hypoglycemic drugs; I10 Essential (primary) hypertension; E66.9 Obesity, unspecified; Z68.30 Body mass index [BMI] 30.0-30.9, adult; E87.6 Hypokalemia; Z86.19 Personal history of other infectious and parasitic diseases; T38.3X5A Adverse effect of insulin and oral hypoglycemic [antidiabetic] drugs, initial encounter; R09.02 Hypoxemia; F17.210 Nicotine dependence, cigarettes, uncomplicated; Z78.1 Physical restraint status
CPT/HCPCS: 31500; 36415; 36416; 36556; 51702; 71045; 76770; 80053; 80069; 81003; 81015; 82553; 82570; 82805; 83605; 83690; 83735; 83880; 84300; 84484; 85007; 85025; 85027; 85060; 85610; 85730; 87040; 87070; 87077; 87086; 87186; 87205; 87899; 93005; 93306; 94002; 94003; 94640; 94644; 94660; 96361; 96365; 96366; 96368; 96372; 96375; 99292; A4216; C1752; J0131; J0171; J0456; J0696; J1200; J1642; J1644; J1940; J1956; J2270; J2920; J3010; J3370; J3480; J7042; J7050; J7070; J7611; J7620; P9047; S0028